=== PATIENT | male | born 1980 | race Caucasian/White ===

== ENCOUNTER 2021-08-12 10:46 | Emergency (ER) | payer MEDICAID, OTHER ==
[~2021-08-12] VITALS: Ht 172.7 cm; Wt 90.9 kg
[~2021-08-12 10:46] MED LIST: BUSP5TAB20 PO
[2021-08-12] MEDS ORDERED: QUEtiapine FUMARATE 100 MG TABLET PO ONE (12:15)
[2021-08-12] MEDS ORDERED: LORazepam 2 MG/ML VIAL IM ONE (12:15)
[2021-08-12 12:58] LABS: AMPHET/METH SCREEN,URINE NEGATIVE (NEGATIVE); BARBITURATE SCREEN, URINE NEGATIVE (NEGATIVE); BENZODIAZEPINES SCREEN,URINE POSITIVE (NEGATIVE); CANNABINOID SCREEN,URINE NEGATIVE (NEGATIVE); COCAINE SCREEN,URINE NEGATIVE (NEGATIVE); METHADONE SCREEN, URINE POSITIVE (NEGATIVE); OPIATE SCREEN,URINE NEGATIVE (NEGATIVE)
[2021-08-12 13:03] LABS: PHENCYCLIDINE SCREEN,URINE NEGATIVE (NEGATIVE)
[2021-08-12 14:08] VITALS: BP 121/74
== END 2021-08-12 14:08 | disposition home or self-care (01) ==
LOC: EMS 10:46
DX: F25.9 Schizoaffective disorder, unspecified (principal); F15.10 Other stimulant abuse, uncomplicated; F17.210 Nicotine dependence, cigarettes, uncomplicated; Z79.891 Long term (current) use of opiate analgesic; Z88.8 Allergy status to other drugs, medicaments and biological substances
CPT/HCPCS: 36415; 80307; 96372; 99285; J2060

== ENCOUNTER 2023-08-08 10:38 | Emergency (ER) | payer OTHER ==
[~2023-08-08] VITALS: Ht 170.2 cm; Wt 94.1 kg
[2023-08-08 10:52] VITALS: BP 131/89; PULSE 82; RESP 16; TEMP 97.9
[2023-08-08] MEDS ORDERED: QUET100T34 PO ×2 (10:56→12:42)
[2023-08-08] MEDS ORDERED: LORA-1000 PO (10:56)
[2023-08-08] MEDS ORDERED: BUSP10TA3 PO ×2 (10:56→12:42)
[2023-08-08] MEDS ORDERED: BusPIRone HCL 10 MG TABLET PO ONE (11:30)
[2023-08-08] MEDS ORDERED: LORazepam 1 MG TABLET PO ONE (11:30)
[2023-08-08] MEDS ORDERED: QUEtiapine FUMARATE 100 MG TABLET PO ONE (11:30)
== END 2023-08-08 12:52 | disposition home or self-care (01) ==
LOC: EMS 11:10
DX: F20.9 Schizophrenia, unspecified (principal); F15.10 Other stimulant abuse, uncomplicated; F41.9 Anxiety disorder, unspecified; F90.9 Attention-deficit hyperactivity disorder, unspecified type; F17.210 Nicotine dependence, cigarettes, uncomplicated; F11.90 Opioid use, unspecified, uncomplicated; Z90.49 Acquired absence of other specified parts of digestive tract; Z91.040 Latex allergy status; Z88.8 Allergy status to other drugs, medicaments and biological substances
CPT/HCPCS: 99284; Z7502; Z7610

== ENCOUNTER 2023-09-18 19:00 | Emergency (ER) | payer OTHER ==
[~2023-09-18] VITALS: Ht 170.2 cm; Wt 94.0 kg
[~2023-09-18 19:00] MED LIST changes: +BUSP10TA3 PO; -BUSP5TAB20 PO; +LORA-1000 PO; +QUET100T34 PO
[2023-09-18 19:07] VITALS: TEMP 97.4
[2023-09-18 19:38] LABS: ALCOHOL, URINE DRUG SCREEN NEGATIVE (NEGATIVE); AMPHET/METH SCREEN,URINE POSITIVE (NEGATIVE); BARBITURATE SCREEN, URINE NEGATIVE (NEGATIVE); BENZODIAZEPINES SCREEN,URINE NEGATIVE (NEGATIVE); CANNABINOID SCREEN,URINE NEGATIVE (NEGATIVE); COCAINE SCREEN,URINE NEGATIVE (NEGATIVE); METHADONE SCREEN, URINE NEGATIVE (NEGATIVE); OPIATE SCREEN,URINE NEGATIVE (NEGATIVE); PHENCYCLIDINE SCREEN,URINE NEGATIVE (NEGATIVE)
[2023-09-18] MEDS ORDERED: LORazepam 2 MG TABLET PO ONE (19:45)
[2023-09-18] MEDS ORDERED: BUPR1FIL3 SL (20:45)
[2023-09-18] MEDS ORDERED: BUSP15 PO (20:45)
[2023-09-18] MEDS ORDERED: LORA-1000 PO (20:45)
[2023-09-18] MEDS ORDERED: QUET100T PO (20:45)
[2023-09-18 21:31] VITALS: BP 129/65; PULSE 77; RESP 16
== END 2023-09-18 22:00 | disposition home or self-care (01) ==
LOC: EMS 19:01
DX: F32.9 Major depressive disorder, single episode, unspecified (principal); F11.20 Opioid dependence, uncomplicated; F15.10 Other stimulant abuse, uncomplicated; F41.9 Anxiety disorder, unspecified; F20.9 Schizophrenia, unspecified; F90.9 Attention-deficit hyperactivity disorder, unspecified type; F17.210 Nicotine dependence, cigarettes, uncomplicated; Z90.49 Acquired absence of other specified parts of digestive tract; Z91.040 Latex allergy status; Z88.8 Allergy status to other drugs, medicaments and biological substances
CPT/HCPCS: 80307; 99283

== ENCOUNTER 2024-02-17 18:01 | Emergency (ER) | payer OTHER ==
[~2024-02-17] VITALS: Ht 172.7 cm; Wt 96.8 kg
[~2024-02-17 18:01] MED LIST changes: +BUPR1FIL3 SL; +BUSP15 PO; +QUET100T PO
[2024-02-17 18:33] VITALS: TEMP 97.7
[2024-02-17 19:51] VITALS: BP 109/69; PULSE 75; RESP 18
[2024-02-17] MEDS ORDERED: BUSP10TA23 PO (20:42)
[2024-02-17] MEDS ORDERED: QUET25TA PO (20:42)
[2024-02-17] MEDS ORDERED: LORA-1000 PO (20:42)
== END 2024-02-17 20:53 | disposition home or self-care (01) ==
LOC: EMS 18:01
DX: F41.9 Anxiety disorder, unspecified (principal); F20.9 Schizophrenia, unspecified; F32.A Depression, unspecified; F17.210 Nicotine dependence, cigarettes, uncomplicated; F15.90 Other stimulant use, unspecified, uncomplicated; F11.90 Opioid use, unspecified, uncomplicated; Z90.49 Acquired absence of other specified parts of digestive tract; Z88.8 Allergy status to other drugs, medicaments and biological substances; Z76.0 Encounter for issue of repeat prescription
CPT/HCPCS: 99283

== ENCOUNTER 2024-05-14 15:49 | Emergency (ER) | payer OTHER ==
[~2024-05-14] VITALS: Ht 172.7 cm; Wt 94.5 kg
[~2024-05-14 15:49] MED LIST changes: +BUSP10TA23 PO; +QUET25TA PO
[2024-05-14 15:57] VITALS: TEMP 98.5
[2024-05-14 17:13] LABS: BASOPHILS % (AUTO) 0.5 % (0.0-2.0); EOSINOPHILS % (AUTO) 1.2 % (1.0-6.0); HEMATOCRIT 47.3 % (41-53); HEMOGLOBIN 16.3 g/dL (13.5-17.5); LYMPHOCYTES # (AUTO) 4.2 K/uL (1.0-4.8); LYMPHOCYTES % (AUTO) 48.3 % (22.0-44.0); MEAN CORPUSCULAR HEMOGLOBIN 30.1 pg (26.0-34.0); MEAN CORPUSCULAR HGB CONC 34.4 G/dL (31.0-37.0); MEAN CORPUSCULAR VOLUME 87 fL (80-100); MONOCYTES # (AUTO) 0.6 K/uL (0.1-1.0); MONOCYTES % (AUTO) 6.8 % (2.0-9.0); NEUTROPHILS # (AUTO) 3.7 K/uL (1.8-7.7); NEUTROPHILS % (AUTO) 43.2 % (40.0-70.0); PLATELET COUNT (AUTO) 304 K/uL (150-450); RED BLOOD CELL COUNT(AUTO) 5.41 MIL/uL (4.50-5.90); RED CELL DISTRIBUTION WIDTH 13.6 % (11.5-14.5); WHITE BLOOD COUNT (AUTO) 8.7 K/uL (4.5-11.0)
[2024-05-14 17:21] LABS: ANION GAP 6 mmol/L (8-16); CALCIUM, TOTAL 9.6 mg/dL (8.8-10.5); CARBON DIOXIDE 30 mmol/L (22-29); CHLORIDE 102 mmol/L (98-107); CREATININE 0.87 mg/dL (0.60-1.30); GLOMERULAR FILTR. RATE CALC > 60 mL/min (>60); GLUCOSE,RANDOM 83 mg/dL (70-110); POTASSIUM 4.1 mmol/L (3.5-5.1); SODIUM SERUM 138 mmol/L (136-145); UREA NITROGEN, BLOOD 13 mg/dL (7-18)
[2024-05-14] MEDS: QUEtiapine FUMARATE 100 MG TABLET PO ONE (17:55)
[2024-05-14] MEDS: LORazepam 2 MG TABLET PO ONE (17:56)
[2024-05-14] MEDS ORDERED: QUET100T34 PO (18:01)
[2024-05-14 18:10] VITALS: BP 115/62; PULSE 89; RESP 20
[2024-05-14] MEDS ORDERED: BUPR-344 PO (18:12)
== END 2024-05-14 18:19 | disposition home or self-care (01) ==
LOC: EMS 15:56
DX: F25.9 Schizoaffective disorder, unspecified (principal); F41.9 Anxiety disorder, unspecified; F32.A Depression, unspecified; F17.210 Nicotine dependence, cigarettes, uncomplicated; F15.90 Other stimulant use, unspecified, uncomplicated; Z90.49 Acquired absence of other specified parts of digestive tract; Z91.040 Latex allergy status; Z88.8 Allergy status to other drugs, medicaments and biological substances
CPT/HCPCS: 99284; 80048; 85025; 36415; G0480

== ENCOUNTER 2024-08-26 12:00 | Emergency (ER) | payer OTHER ==
[~2024-08-26] VITALS: Ht 170.2 cm; Wt 98.0 kg
[~2024-08-26 12:00] MED LIST changes: +BUPR-344 PO
[2024-08-26 12:08] VITALS: BP 116/67; PULSE 78; RESP 16; TEMP 98.4; O2SAT 98
[2024-08-26] MEDS ORDERED: BUPR-344 PO (13:15)
[2024-08-26] MEDS ORDERED: BUSP15 PO (13:15)
[2024-08-26] MEDS: LORazepam 1 MG TABLET PO ONE (13:19)
== END 2024-08-26 13:29 | disposition home or self-care (01) ==
LOC: EDUNIT# 12:00 → EMS 12:00
DX: F41.9 Anxiety disorder, unspecified (principal); F32.A Depression, unspecified; F20.9 Schizophrenia, unspecified; Z90.49 Acquired absence of other specified parts of digestive tract; Z76.0 Encounter for issue of repeat prescription; Z91.040 Latex allergy status; Z91.013 Allergy to seafood; Z88.8 Allergy status to other drugs, medicaments and biological substances
CPT/HCPCS: 99283

== ENCOUNTER 2025-02-07 16:45 | Emergency (ER) | payer OTHER ==
[~2025-02-07] VITALS: Ht 170.2 cm; Wt 95.5 kg
[~2025-02-07 16:45] MED LIST changes: -LORA-1000 PO; +LORA1TAB25 PO
[2025-02-07 17:01] VITALS: TEMP 98.9
[2025-02-07 17:09] VITALS: BP 130/86; PULSE 60; RESP 18; O2SAT 97
[2025-02-07 17:20] LABS: COVID AG,FIA SOURCE NASAL SWAB
[2025-02-07 17:42] LABS: SARS-COV2 (COVID) ANTIGEN,FIA Negative (Negative)
[2025-02-07 17:44] LABS: BASOPHILS % (AUTO) 0.2 % (0.0-2.0); EOSINOPHILS % (AUTO) 0.1 % (1.0-6.0); HEMATOCRIT 49.1 % (41-53); HEMOGLOBIN 16.6 g/dL (13.5-17.5); LYMPHOCYTES # (AUTO) 1.6 K/uL (1.0-4.8); LYMPHOCYTES % (AUTO) 20.7 % (22.0-44.0); MEAN CORPUSCULAR HEMOGLOBIN 29.1 pg (26.0-34.0); MEAN CORPUSCULAR HGB CONC 33.8 G/dL (31.0-37.0); MEAN CORPUSCULAR VOLUME 86 fL (80-100); MONOCYTES # (AUTO) 0.2 K/uL (0.1-1.0); MONOCYTES % (AUTO) 3.1 % (2.0-9.0); NEUTROPHILS # (AUTO) 5.7 K/uL (1.8-7.7); NEUTROPHILS % (AUTO) 75.9 % (40.0-70.0); PLATELET COUNT (AUTO) 290 K/uL (150-450); RED BLOOD CELL COUNT(AUTO) 5.68 MIL/uL (4.50-5.90); RED CELL DISTRIBUTION WIDTH 13.3 % (11.5-14.5); WHITE BLOOD COUNT (AUTO) 7.5 K/uL (4.5-11.0)
[2025-02-07 17:55] LABS: ANION GAP 7 mmol/L (8-16); CALCIUM, TOTAL 9.3 mg/dL (8.8-10.5); CARBON DIOXIDE 30 mmol/L (22-29); CHLORIDE 98 mmol/L (98-107); CREATININE 0.69 mg/dL (0.60-1.30); GLOMERULAR FILTR. RATE CALC > 60 mL/min (>60); GLUCOSE,RANDOM 99 mg/dL (70-110); POTASSIUM 4.5 mmol/L (3.5-5.1); SODIUM SERUM 135 mmol/L (136-145); UREA NITROGEN, BLOOD 8 mg/dL (7-18)
[2025-02-07 18:06] LABS: ALCOHOL, BLOOD (SERUM) < 3 mg/dL (0-10)
[2025-02-07] MEDS ORDERED: QUET25TA PO (18:15)
[2025-02-07] MEDS ORDERED: ONDA-104 PO (18:18)
[2025-02-07] MEDS: ONDANSETRON 4 MG TABLET PO ONE (18:24)
[2025-02-07] MEDS: LORazepam 1 MG TABLET PO ONE (18:24)
== END 2025-02-07 18:31 | disposition home or self-care (01) ==
LOC: EMS 16:45
DX: R45.851 Suicidal ideations (principal); F11.20 Opioid dependence, uncomplicated; F20.9 Schizophrenia, unspecified; F32.A Depression, unspecified; Z88.8 Allergy status to other drugs, medicaments and biological substances; Z90.49 Acquired absence of other specified parts of digestive tract; Z91.041 Radiographic dye allergy status; Z79.899 Other long term (current) drug therapy; Z20.822 Contact with and (suspected) exposure to COVID-19
CPT/HCPCS: 99283; 87426; 80048; 85025; 36415; G0480; Q0162